=== PATIENT | male | born 1980 | race Caucasian/White ===

== ENCOUNTER 2018-05-23 20:05 | Emergency (ER) | payer OTHER ==
[2018-05-23] MEDS ORDERED: LISINOPRIL 5 MG TABLET PO ONE (20:57)
--- NOTE | 2018-05-23 20:57 | ED Physician Documentation ---
General Adult - HISTORIAN Historian: patient - HPI Stated Complaint: light headed Chief Complaint: General Adult Additional Information: Patient presents to ED with dizziness and lightheadness while walking around in [facility]. He fiance noticed him stumbling around and grabbing on to shelving to keep his balance. He went to the pharmacy and took his blood pressure and it was 170/110. Patient admits to intermittent episodes like this over the past 2 weeks but nothing as dramatic as tonight. He has gained 40-50 pounds over the past year. He does wear a cpap with minimal settings. Onset: hours (1) Timing: better Severity: moderate - ROS CONST: no problems - PAST HX Past History: none Allergies/Adverse Reactions: Allergies Allergy/AdvReac Type Severity Reaction Status Date / Time No Known Allergies Allergy Verified 05/23/18 20:59 Home Medications: Ambulatory Orders Medication Instructions Recorded Lisinopril [Prinivil] 10 mg PO DAILY #30 tablet 05/23/18 - SOCIAL HX Smoking History: non-smoker Alcohol Use: none Drug Use: none - FAMILY HX Family History: Yes (father, HTN, [place]) - VITAL SIGNS Vital Signs: Vital Signs Temp Pulse Resp BP Pulse Ox 97.1 F L 92 H 18 164/105 96 05/23/18 20:12 05/23/18 20:12 05/23/18 20:12 05/23/18 20:12 05/23/18 20:12 - REVIEWED ASSESSMENTS Nursing Assessment Reviewed: Yes Vitals Reviewed: Yes Progress - Progress Progress: 2151 Blood pressure is now 162/69 ED Results Lab/Radiology - Orders Orders: ED Orders Category Date Time Status CHEST 2VIEW [RAD] Stat Exams 05/23/18 Ordered CBC/PLATELET/DIFF Routine Lab 05/23/18 20:46 Received CMP Routine Lab 05/23/18 20:46 Received EKG WITH COMPARISON Stat Ther 05/23/18 Ordered General Adult Physical Exam - PHYSICAL EXAM GENERAL APPEARANCE: no distress EENT: JONNA NECK: supple RESPIRATORY: no resp distress, chest non-tender, breath sounds normal CVS: reg rate & rhythm, heart sounds normal, equal pulses ABDOMEN: soft BACK: normal inspection, no CVA tenderness SKIN: warm/dry EXTREMITIES: non-tender, no edema NEURO: oriented X3 Discharge Clincal Impression: Hypertensive urgency Prescriptions: Lisinopril [Prinivil] 10 mg PO DAILY #30 tablet Referrals: Jennifer Robbins, PRN [Primary Care Provider] - 2 Days Additional Instructions: 1. Take Lisinopril daily 2. Follow up with PCP as soon as possible 3. Continue to wear cpap with sleep. 4. Return to ED with new or worsening symptoms, chest pain, shortness of breath, syncope. Condition: Stable Disposition: 01 HOME, SELF-CARE Decision to Admit: NO Date of Decison to Admit: 05/23/18 Decision Time: 21:55
[2018-05-23 22:02] VITALS: BP 162/69
--- NOTE | 2018-05-24 05:05 | Diagnostic Imaging Report ---
JOJO MANCUSO [facility] [address] [facility] [address] [place], [place]. [address] Report Submission Date: May 23, 2018 9:24:35 PM [employer]IDENTIAL [employer]STRUCTION [employer] Patient Study Name: GUERO ESTRADA Date: May 23, 2018 8:44:51 PM [employer]IDENTIAL [employer]STRUCTION IN[employer]CTOR Modality Type: DX Gender: M Description: CHEST : 78 Institution: [facility] Physician: JOJO MANCUSO PA and lateral chest Clinical history: Hypertension. Lightheadedness. Findings: Examination of the chest in PA and lateral views demonstrates the lungs to be clear. The cardiovascular and mediastinal silhouettes are within normal limits. The bony thorax is intact. Impression: 1. Negative chest. Electronically signed on May 23, 2018 9:24:35 PM RESIDENTIAL CONSTRUCTION INSTRUCTOR by: Richar BRICEÑO
[2018-05-24 07:02] LABS: BASOPHILS % 0.6 (0.0-1.5); EOSINOPHILS % 3.3 % (0.0-6.8); MEAN CORPUSCULAR HEMOGLOBIN 29.8 pg (28.0-34.0); MONOCYTES % 9.8 % (0.0-11.0); NEUTROPHILS # 3.8 # k/uL (1.4-7.7); eGFR (Non-African) > 60
== END 2018-05-23 22:10 | disposition home or self-care (01) ==
LOC: ED 20:05
DX: I16.0 Hypertensive urgency (principal)
CPT/HCPCS: 36415; 71046; 80053; 85025; 99282; 99285; S1016